=== PATIENT | male | born 1935 | race African-American/Black ===

== ENCOUNTER 2018-07-17 10:39 | Inpatient (IN) | payer MEDICARE, MEDICAID ==
[2018-07-17] VITALS (13 sets, daily range): BP systolic 97–134; BP diastolic 48–67
[~2018-07-17] VITALS: Ht 180.3 cm; Wt 77.6 kg
[~2018-07-17 10:39] MED LIST: ASPI-1158; ATOR-2; BECL8.7A5; DIGO125T82; ESOM40CA; FURO-151; HYDR-1348; METO25TA3; POTA25PA2; SPIRIVA
[2018-07-17 11:41] LABS: BASOPHILS % 0.9 % (0.0-2.0); EOSINOPHILS % 0.7 % (0.0-5.0); LYMPHOCYTES % 17.2 % (20.0-50.0); MEAN CORPUSCULAR HEMOGLOBIN 24.5 pg (28.0-32.0); MEAN CORPUSCULAR VOLUME 79.7 fL (80.0-94.0); MEAN PLATELET VOLUME 8.1 fl (7.4-10.4); MONOCYTES % 8.4 % (2.0-8.0); NEUTROPHILS % 72.8 % (40.0-76.0); PLATELET 154 x1000/uL (130-400); RED BLOOD CELL COUNT 2.42 mill/uL (4.7-6.1)
[2018-07-17 11:44] LABS: CHLORIDE 108 mEq/L (98-107); HEMATOCRIT. 19.3 % (42.0-52.0); HEMOGLOBIN. 5.9 g/dL (14.0-18.0)
[2018-07-17] MEDS ORDERED: TAMS0.4C31 MT (14:11)
[2018-07-17] MEDS ORDERED: FLUT15.88 BOTHNSTRLS (14:11)
[2018-07-17] MEDS ORDERED: ESOM40CA MT (14:11)
[2018-07-17] MEDS ORDERED: RIVA20TA MT (14:11)
[2018-07-17] MEDS ORDERED: ROSU20TA29 MT (14:11)
[2018-07-17] MEDS ORDERED: DUTA0.5C15 MT (14:11)
[2018-07-17] MEDS ORDERED: ARFO15VI2 NEB (14:11)
[2018-07-17] MEDS ORDERED: MAGNESIUM/ALUMINUM HYDROXIDE/SIMETHICONE 30ML UDC PO PRN (14:30)
[2018-07-17] MEDS ORDERED: GUAIFENESIN 200MG/10ML SUGAR FREE UDC PO PRN (14:30)
[2018-07-17] MEDS ORDERED: ONDANSETRON HCL 4MG/2ML INJ IV PRN (14:30)
[2018-07-17] MEDS ORDERED: CLONIDINE 0.1MG TABLET PO PRN (14:30)
[2018-07-17] MEDS ORDERED: IPRATROPIUM/ALBUTEROL 0.5-3(2.5)MG/3ML NEB INH PRN (14:30)
[2018-07-17] MEDS ORDERED: DOCUSATE SODIUM 100MG CAPSULE PO PRN (14:30)
[2018-07-17] MEDS ORDERED: HYDROCODONE/ACETAMINOPHEN 5/325MG TABLET PO PRN (14:30)
[2018-07-17] MEDS ORDERED: ACETAMINOPHEN 325MG TABLET PO PRN (14:30)
[2018-07-17] MEDS ORDERED: AMLODIPINE 10MG TABLET PO SCH (14:39)
[2018-07-17] MEDS ORDERED: CARVEDILOL 3.125 MG TABLET PO NR (15:00)
[2018-07-17 17:02] LABS: TOTAL IRON BINDING CAPACITY 347 ug/dL (250-450)
[2018-07-17 17:32] LABS: INR 1.4; PARTIAL THROMBOPLASTIN TIME 30.6 sec (23.4-31.0); PROTHROMBIN TIME 13.6 sec (9.1-11.1)
[2018-07-17] MEDS: PANTOPRAZOLE SODIUM 40 MG/VIAL IV SCH (17:37)
[2018-07-17 17:53] LABS: FOLIC ACID (FOLATE) SERUM >20 ng/mL ng/mL (>5.38)
[2018-07-17 18:05] LABS: VITAMIN B12 SERUM 292 pg/mL (211-911)
[2018-07-17 18:09] LABS: FERRITIN 7 ng/mL (22-322)
[2018-07-18] VITALS (8 sets, daily range): BP systolic 100–140; BP diastolic 52–80
[2018-07-18 00:12] LABS: HEMATOCRIT 25.3 % (42.0-52.0); HEMOGLOBIN 8.3 g/dL (14.0-18.0)
[2018-07-18 00:57] LABS: CREATINE KINASE MB FRACTION 3.2 ng/mL (0.5-3.6)
[2018-07-18] MEDS: CARVEDILOL 3.125 MG TABLET PO SCH ×3 (03:55→20:48)
[2018-07-18 05:26] LABS: BASOPHILS % 0.9 % (0.0-2.0); EOSINOPHILS % 1.6 % (0.0-5.0); HEMATOCRIT. 26.5 % (42.0-52.0); HEMOGLOBIN. 8.7 g/dL (14.0-18.0); LYMPHOCYTES % 22.9 % (20.0-50.0); MEAN CORPUSCULAR HEMOGLOBIN 26.2 pg (28.0-32.0); MONOCYTES % 7.1 % (2.0-8.0); NEUTROPHILS % 67.5 % (40.0-76.0); PLATELET 137 x1000/uL (130-400); RED BLOOD CELL COUNT 3.31 mill/uL (4.7-6.1); RED CELL DISTRIBUTION WIDTH 17.3 % (11.6-14.6)
[2018-07-18 05:31] LABS: INR 1.2; PARTIAL THROMBOPLASTIN TIME 27.4 sec (23.4-31.0); PROTHROMBIN TIME 11.7 sec (9.1-11.1)
[2018-07-18 05:33] LABS: CHLORIDE 110 mEq/L (98-107)
[2018-07-18 05:42] LABS: LDL CHOLESTEROL 35 mg/dL (5-100)
[2018-07-18 05:43] LABS: CREATINE KINASE 62 IU/L (39-308); HDL CHOLESTEROL 53 mg/dL (40-59)
[2018-07-18 05:50] LABS: CREATINE KINASE MB FRACTION 3.1 ng/mL (0.5-3.6)
[2018-07-18] MEDS ORDERED: FENTANYL CITRATE/PF 50MCG/ML 2ML VIAL IV PRN (14:08)
[2018-07-18] MEDS ORDERED: MIDAZOLAM HCL 5 MG/5 ML VIAL IV PRN (14:10)
[2018-07-18] MEDS ORDERED: SIMETHICONE 40 MG/0.6 ML 30ML ONE (14:11)
[2018-07-18] MEDS ORDERED: MIDAZOLAM HCL 5 MG/5 ML VIAL ONE (14:12)
[2018-07-18] MEDS ORDERED: FENTANYL CITRATE/PF 50MCG/ML 2ML VIAL ONE (14:12)
[2018-07-18] MEDS: PANTOPRAZOLE SODIUM 40 MG/VIAL IV SCH (15:00)
[2018-07-18] MEDS: IRON SUCROSE COMPLEX 100 MG/5 ML ML IV SCH (15:00)
[2018-07-19] VITALS: BP 121/64
[2018-07-19 07:45] LABS: BASOPHILS % 0.8 % (0.0-2.0); EOSINOPHILS % 1.6 % (0.0-5.0); HEMATOCRIT. 28.5 % (42.0-52.0); HEMOGLOBIN. 9.2 g/dL (14.0-18.0); MEAN CORPUSCULAR HEMOGLOBIN 26.2 pg (28.0-32.0); MEAN PLATELET VOLUME 8.9 fl (7.4-10.4); MONOCYTES % 7.2 % (2.0-8.0); NEUTROPHILS % 65.4 % (40.0-76.0); PLATELET 178 x1000/uL (130-400); RED BLOOD CELL COUNT 3.52 mill/uL (4.7-6.1); RED CELL DISTRIBUTION WIDTH 18.1 % (11.6-14.6)
[2018-07-19 08:20] VITALS: BP_SYST 113; BP_SYST 126; BP_DIAS 59; BP_DIAS 70
[2018-07-19] MEDS: CARVEDILOL 3.125 MG TABLET PO SCH ×3 (09:00→20:46)
[2018-07-19] MEDS: CYANOCOBALAMIN 1000MCG/ML VIAL IM SCH ×2 (09:00→11:19)
[2018-07-19] MEDS: PANTOPRAZOLE SODIUM 40 MG/VIAL IV SCH ×2 (09:00→11:19)
[2018-07-19] MEDS ORDERED: BARIUM SULFATE(VOLUMEN) 450 ML ORAL.SUSP ONE (09:18)
[2018-07-19 09:48] LABS: CHLORIDE 108 mEq/L (98-107)
[2018-07-19] MEDS ORDERED: IOHEXOL-350 100 ML BOTTLE ONE (11:06)
[2018-07-19 12:00] VITALS: BP 138/71
[2018-07-19] MEDS: IRON SUCROSE COMPLEX 100 MG/5 ML ML IV SCH (14:29)
[2018-07-19 16:00] VITALS: BP 133/58
[2018-07-19 20:00] VITALS: BP_SYST 123; BP_SYST 129; BP_DIAS 63; BP_DIAS 73
[2018-07-20] VITALS: BP 132/66
[2018-07-20 04:00] VITALS: BP 111/72
[2018-07-20 06:44] LABS: BASOPHILS % 0.8 % (0.0-2.0); EOSINOPHILS % 2.1 % (0.0-5.0); HEMATOCRIT. 25.4 % (42.0-52.0); HEMOGLOBIN. 8.2 g/dL (14.0-18.0); LYMPHOCYTES % 22.9 % (20.0-50.0); MEAN CORPUSCULAR HEMOGLOBIN 26.3 pg (28.0-32.0); MEAN PLATELET VOLUME 8.9 fl (7.4-10.4); MONOCYTES % 9.1 % (2.0-8.0); NEUTROPHILS % 65.1 % (40.0-76.0); PLATELET 146 x1000/uL (130-400); RED BLOOD CELL COUNT 3.14 mill/uL (4.7-6.1); RED CELL DISTRIBUTION WIDTH 17.9 % (11.6-14.6)
[2018-07-20 06:55] LABS: CHLORIDE 108 mEq/L (98-107)
[2018-07-20 08:00] VITALS: BP 148/78
[2018-07-20] MEDS: CARVEDILOL 3.125 MG TABLET PO SCH (09:29)
[2018-07-20] MEDS: PANTOPRAZOLE SODIUM 40 MG/VIAL IV SCH (09:29)
[2018-07-20] MEDS: CYANOCOBALAMIN 1000MCG/ML VIAL IM SCH (09:36)
[2018-07-20 11:48] VITALS: BP 20/110
[2018-07-20 12:00] VITALS: BP 128/63
[2018-07-20] MEDS: IRON SUCROSE COMPLEX 100 MG/5 ML ML IV SCH (14:34)
== END 2018-07-20 15:05 | disposition home health service (06) | DRG 241 ==
LOC: ER 10:39 → 8WST 12:05 → EDBEDREQTM 12:07 → EDBEDREQ 12:07 → ENRESERV 12:11
PROVIDERS: ADMIT Hospitalist; ATTEND Hospitalist
PROC: 30233N1 Transfusion of Nonautologous Red Blood Cells into Peripheral Vein, Percutaneous Approach (ICD-10-PCS; 2018-07-17)
PROC: 0DB68ZX Excision of Stomach, Via Natural or Artificial Opening Endoscopic, Diagnostic (ICD-10-PCS; 2018-07-18)
PROC: 0DB78ZX Excision of Stomach, Pylorus, Via Natural or Artificial Opening Endoscopic, Diagnostic (ICD-10-PCS; principal; 2018-07-18 10:00)
DX: K29.71 Gastritis, unspecified, with bleeding (principal); I47.2 Ventricular tachycardia; D68.59 Other primary thrombophilia; I11.9 Hypertensive heart disease without heart failure; D62 Acute posthemorrhagic anemia; J44.9 Chronic obstructive pulmonary disease, unspecified; E78.5 Hyperlipidemia, unspecified; I25.10 Atherosclerotic heart disease of native coronary artery without angina pectoris; R74.8 Abnormal levels of other serum enzymes; D50.9 Iron deficiency anemia, unspecified; I49.1 Atrial premature depolarization; I49.3 Ventricular premature depolarization; K44.9 Diaphragmatic hernia without obstruction or gangrene; Z79.01 Long term (current) use of anticoagulants; I25.2 Old myocardial infarction; Z79.02 Long term (current) use of antithrombotics/antiplatelets; Z87.891 Personal history of nicotine dependence; Z95.5 Presence of coronary angioplasty implant and graft; Z79.82 Long term (current) use of aspirin; Z79.899 Other long term (current) drug therapy
CPT/HCPCS: 36415; 71045; 74177; 76700; 80048; 80061; 82550; 82553; 82607; 82728; 82746; 83540; 83550; 83735; 83880; 84100; 84484; 85014; 85018; 85044; 85379; 86850; 86900; 86920; 88305; 88312; 88313; 93005; 93306; 93970; 96365; 97116; 97162; 97166; 97530; 99291; C9113; J2250; J3010; J3420; J7040; P9016; Q9967

== ENCOUNTER 2019-12-11 13:49 | Inpatient (IN) | payer MEDICARE, MEDICAID ==
[~2019-12-11] VITALS: Ht 185.4 cm; Wt 80.7 kg
[~2019-12-11 13:49] MED LIST changes: +ARFO15VI2 NEB; -ATOR-2; -DIGO125T82; +DUTA0.5C16 MT; +ESOM40CA MT; +FLUT15.844 BOTHNSTRLS; -FURO-151; -HYDR-1348; -POTA25PA2; +RIVA20TA MT; +ROSU20TA29 MT; +TAMS0.4C31 MT
[2019-12-11] MEDS ORDERED: SODIUM CHLORIDE 0.9% 1,000 ML IV ONE (14:50)
[2019-12-11 15:17] LABS: BASOPHILS % 0.6 % (0.0-2.0); HEMATOCRIT. 43.7 % (42.0-52.0); HEMOGLOBIN. 14.5 g/dL (14.0-18.0); LYMPHOCYTES % 35.1 % (20.0-50.0); MEAN CORPUSCULAR HEMOGLOBIN 30.6 pg (28.0-32.0); MEAN CORPUSCULAR VOLUME 92.3 fL (80.0-94.0); MEAN PLATELET VOLUME 7.9 fl (7.4-10.4); MONOCYTES % 9.3 % (2.0-8.0); PLATELET 147 x1000/uL (130-400); RED BLOOD CELL COUNT 4.74 mill/uL (4.7-6.1)
[2019-12-11 15:18] LABS: CHLORIDE 111 mEq/L (98-107)
[2019-12-11 15:20] LABS: PARTIAL THROMBOPLASTIN TIME 28.7 sec (23.4-31.0); PROTHROMBIN TIME 10.4 sec (9.6-11.0)
[2019-12-11] MEDS ORDERED: PANTOPRAZOLE SODIUM 40 MG/VIAL IV ONE (16:45)
[2019-12-11] MEDS ORDERED: ONDANSETRON HCL 4MG/2ML INJ IV PRN (19:30)
[2019-12-11] MEDS ORDERED: ACETAMINOPHEN 325MG TABLET PO PRN (19:30)
[2019-12-11 23:55] VITALS: BP 146/75
[2019-12-12] VITALS: BP 146/75
[2019-12-12] MEDS ORDERED: FERR325T6 PO (00:05)
[2019-12-12] MEDS ORDERED: TIOT18CA3 INH (00:05)
[2019-12-12] MEDS ORDERED: BECL10.62 INH (00:05)
[2019-12-12] MEDS ORDERED: OMEP40CA12 PO (00:05)
[2019-12-12] MEDS ORDERED: CLOP75TA33 PO (00:05)
[2019-12-12] MEDS ORDERED: ARFO15VI2 NEB (00:05)
[2019-12-12] MEDS ORDERED: FURO20TA4 PO (00:05)
[2019-12-12 04:00] VITALS: BP 147/69
[2019-12-12 06:32] LABS: CLARITY URINE CLEAR (CLEAR); COLOR URINE YELLOW (YELLOW); KETONES URINE TRACE (NEGATIVE); LEUKOCYTE ESTERASE URINE NEGATIVE (NEGATIVE); NITRITE URINE NEGATIVE (NEGATIVE); OCCULT BLOOD URINE NEGATIVE (NEGATIVE); PH URINE 5.5 (4.5-8.0); PROTEIN URINE TRACE (NEGATIVE); SPECIFIC GRAVITY URINE 1.021 (1.005-1.030); UROBILINOGEN URINE 0.2 E.U./dL (0.2-1.0)
[2019-12-12] MEDS ORDERED: PANTOPRAZOLE SODIUM 40 MG/VIAL IV SCH ×2 (09:00)
[2019-12-12 12:19] LABS: BASOPHILS % 0.8 % (0.0-2.0); EOSINOPHILS % 2.5 % (0.0-5.0); HEMATOCRIT. 44.6 % (42.0-52.0); HEMOGLOBIN. 14.5 g/dL (14.0-18.0); LYMPHOCYTES % 29.5 % (20.0-50.0); MEAN CORPUSCULAR HEMOGLOBIN 29.7 pg (28.0-32.0); MEAN CORPUSCULAR VOLUME 91.2 fL (80.0-94.0); MEAN PLATELET VOLUME 8.4 fl (7.4-10.4); MONOCYTES % 8.5 % (2.0-8.0); NEUTROPHILS % 58.7 % (40.0-76.0); PLATELET 147 x1000/uL (130-400); RED BLOOD CELL COUNT 4.89 mill/uL (4.7-6.1); RED CELL DISTRIBUTION WIDTH 14.8 % (11.6-14.6)
[2019-12-12 15:16] VITALS: BP 117/78
== END 2019-12-12 15:51 | disposition home or self-care (01) | DRG 253 ==
LOC: ER 14:03 → 6WST 17:35 → ENRESERV 22:32 → ER 23:32
PROVIDERS: ADMIT Internal Medicine; ATTEND Internal Medicine
DX: K92.2 Gastrointestinal hemorrhage, unspecified (principal); E87.8 Other disorders of electrolyte and fluid balance, not elsewhere classified; J44.9 Chronic obstructive pulmonary disease, unspecified; I25.10 Atherosclerotic heart disease of native coronary artery without angina pectoris; I10 Essential (primary) hypertension; E78.5 Hyperlipidemia, unspecified; N40.0 Benign prostatic hyperplasia without lower urinary tract symptoms; Z79.01 Long term (current) use of anticoagulants; Z86.718 Personal history of other venous thrombosis and embolism; Z79.899 Other long term (current) drug therapy
CPT/HCPCS: 36415; 71045; 80053; 81003; 82270; 84484; 85025; 86850; 86900; 93005; 99285; C9113; J7030

== ENCOUNTER 2020-09-28 09:43 | Emergency (ER) | payer MEDICARE, MEDICAID ==
[~2020-09-28] VITALS: Ht 165.1 cm; Wt 77.0 kg
[~2020-09-28 09:43] MED LIST changes: -ASPI-1158; +ASPI-1406; +BECL10.62 INH; -BECL8.7A5; +CLOP75TA33 PO; -DUTA0.5C16 MT; +DUTA0.5C37 MT; -ESOM40CA; -ESOM40CA MT; +FERR325T6 PO; +FURO20TA4 PO; +OMEP40CA12 PO; -RIVA20TA MT; -SPIRIVA; +TIOT18CA3 INH
[2020-09-28] MEDS ORDERED: ACETAMINOPHEN 325MG TABLET PO ONE (10:15)
[2020-09-28] MEDS ORDERED: LIDOCAINE 5% PATCH TOP SCH (10:15)
[2020-09-28 11:05] LABS: BASOPHILS % 0.4 % (0.0-2.0); EOSINOPHILS % 0.4 % (0.0-5.0); HEMATOCRIT. 45.3 % (42.0-52.0); HEMOGLOBIN. 14.9 g/dL (14.0-18.0); LYMPHOCYTES % 10.9 % (20.0-50.0); MEAN CORPUSCULAR HEMOGLOBIN 29.8 pg (28.0-32.0); MEAN CORPUSCULAR VOLUME 90.4 fL (80.0-94.0); MEAN PLATELET VOLUME 8.5 fl (7.4-10.4); MONOCYTES % 7.1 % (2.0-8.0); NEUTROPHILS % 81.2 % (40.0-76.0); PLATELET 167 x1000/uL (130-400); RED BLOOD CELL COUNT 5.01 mill/uL (4.7-6.1); RED CELL DISTRIBUTION WIDTH 14.1 % (11.6-14.6)
[2020-09-28 11:13] LABS: CHLORIDE 103 mEq/L (98-107)
[2020-09-28 14:34] VITALS: BP 168/55
[2020-09-28] MEDS ORDERED: LIDO700A15 TP (14:53)
== END 2020-09-28 15:19 | disposition home or self-care (01) ==
LOC: ER 09:43
DX: M25.512 Pain in left shoulder (principal); I25.2 Old myocardial infarction; I10 Essential (primary) hypertension; E78.00 Pure hypercholesterolemia, unspecified; J44.1 Chronic obstructive pulmonary disease with (acute) exacerbation; Z13.9 Encounter for screening, unspecified; Z79.899 Other long term (current) drug therapy; Z79.82 Long term (current) use of aspirin; Z86.73 Personal history of transient ischemic attack (TIA), and cerebral infarction without residual deficits; Z98.890 Other specified postprocedural states
CPT/HCPCS: 36415; 71045; 73030; 80053; 83880; 84484; 85025; 93005; 99285

== ENCOUNTER 2022-10-23 10:16 | Inpatient (IN) | payer MEDICARE, MEDICAID ==
[~2022-10-23] VITALS: Ht 180.3 cm; Wt 73.0 kg
[~2022-10-23 10:16] MED LIST changes: +LIDO700A15 TP; -OMEP40CA12 PO; +OMEP40CA20 PO
[2022-10-23] MEDS ORDERED: METHYLPREDNISOLONE SOD SUCC 125 MG/2 ML VIAL IV STA (10:41)
[2022-10-23] MEDS ORDERED: ALBUTEROL (0.083%) 2.5MG/3ML NEB HHN STA (10:41)
[2022-10-23] MEDS ORDERED: MAGNESIUM 2 G PREMIX 50 ML IV STA (10:41)
[2022-10-23] MEDS ORDERED: IPRATROPIUM BROMIDE (0.02%) 0.5MG/2.5ML NEB HHN STA (10:41)
[2022-10-23 11:25] LABS: BASOPHILS % 0.7 % (0.0-2.0); EOSINOPHILS % 2.2 % (0.0-5.0); HEMATOCRIT. 44.9 % (42.0-52.0); HEMOGLOBIN. 14.4 g/dL (14.0-18.0); LYMPHOCYTES % 20.2 % (20.0-50.0); MEAN CORPUSCULAR HEMOGLOBIN 30.4 pg (28.0-32.0); MEAN CORPUSCULAR VOLUME 95.1 fL (80.0-94.0); MEAN PLATELET VOLUME 7.6 fl (7.4-10.4); MONOCYTES % 5.3 % (2.0-8.0); NEUTROPHILS % 71.6 % (40.0-76.0); PLATELET 121 x1000/uL (130-400); RED BLOOD CELL COUNT 4.72 mill/uL (4.7-6.1); RED CELL DISTRIBUTION WIDTH 15.3 % (11.6-14.6)
[2022-10-23 11:30] LABS: CHLORIDE 110 mEq/L (98-107)
[2022-10-23] MEDS ORDERED: ACETAMINOPHEN 325MG TABLET PO PRN ×2 (14:30)
[2022-10-23] MEDS ORDERED: AZITHROMYCIN 500MG/250ML 250 ML IV SCH (14:30)
[2022-10-23] MEDS ORDERED: IPRATROPIUM/ALBUTEROL 0.5-3(2.5)MG/3ML NEB HHN PRN (14:30)
[2022-10-23] MEDS ORDERED: GUAIFENESIN 200MG/10ML SUGAR FREE UDC PO PRN (14:30)
[2022-10-23] MEDS ORDERED: DOCUSATE SODIUM 100MG CAPSULE PO PRN (14:30)
[2022-10-23] MEDS ORDERED: IPRATROPIUM/ALBUTEROL 0.5-3(2.5)MG/3ML NEB HHN SCH (14:30)
[2022-10-23] MEDS ORDERED: MAGNESIUM/ALUMINUM HYDROXIDE/SIMETHICONE 30ML UDC PO PRN (14:30)
[2022-10-23] MEDS ORDERED: DIPHENHYDRAMINE 50MG/ML VIAL IV PRN (14:30)
[2022-10-23] MEDS ORDERED: CLONIDINE 0.1MG TABLET PO PRN (14:30)
[2022-10-23 14:56] VITALS: BP 114/68
[2022-10-23] MEDS ORDERED: ALBUTEROL (0.083%) 2.5MG/3ML NEB HHN PRN (15:00)
[2022-10-23] MEDS ORDERED: IPRATROPIUM BROMIDE (0.02%) 0.5MG/2.5ML NEB HHN PRN (15:00)
[2022-10-23 15:04] LABS: BG BASE EXCESS 1.7 mmol/L (-2.0-2.0); BG CARBOXYHEMOGLOBIN 0.9 % (0.5-1.5); BG DEOXYHEMOGLOBIN 5.3 % (0.0-5.0); BG FRACTION INSPIRED OXYGEN 28; BG HCO3 ACT 25.8 mmol/L (22.0-26.0); BG METHEMOGLOBIN 0.1 % (0.0-1.5); BG OXYGEN SATURATION 94.6 % (92.0-98.5); BG OXYHEMOGLOBIN 93.7 % (94.0-97.0); BG PCO2 38.9 mmHg (35.0-45.0); BG PO2 73.6 mmHg (75.0-100.0); BG SAMPLE SITE RIGHT BRACHIAL; BG TOTAL HEMOGLOBIN 15.4 g/dL (12.0-18.0); BG VENT MODE NASAL CANNULA
[2022-10-23] MEDS ORDERED: ROSU20TA2 PO (15:28)
[2022-10-23] MEDS ORDERED: LEVO25TA7 PO (15:28)
[2022-10-23] MEDS ORDERED: FINA5TAB3 PO (15:28)
[2022-10-23] MEDS ORDERED: MIRT-118 PO (15:28)
[2022-10-23] MEDS ORDERED: DONE10TA11 PO (15:28)
[2022-10-23 16:00] VITALS: BP 104/68
[2022-10-23] MEDS: ENOXAPARIN 40MG/0.4ML SYR SUBCUT SCH (16:17)
[2022-10-23] MEDS: TAMSULOSIN HCL 0.4MG SR CAPSULE PO SCH (16:18)
[2022-10-23] MEDS ORDERED: AZITHROMYCIN 500MG in DEXTROSE 5% WATER 250ML IV SCH (17:00)
[2022-10-23] MEDS: METHYLPREDNISOLONE SOD SUCC 125 MG/2 ML VIAL IV SCH ×2 (17:35→23:33)
[2022-10-23 20:00] VITALS: BP_SYST 132; BP_SYST 82; BP_DIAS 46; BP_DIAS 60
[2022-10-23] MEDS: METOPROLOL TARTRATE 50MG TABLET PO SCH (21:00)
[2022-10-23] MEDS ORDERED: ATORVASTATIN CALCIUM 20MG TABLET PO SCH (21:00)
[2022-10-23] MEDS: MIRTAZAPINE 15MG TABLET PO SCH (21:20)
[2022-10-23] MEDS: MEMANTINE HCL 5MG TABLET PO SCH (21:20)
[2022-10-23 21:23] LABS: HEPATITIS B SURFACE ANTIGEN NEGATIVE
[2022-10-23 22:49] LABS: CLARITY URINE CLEAR (CLEAR); COLOR URINE YELLOW (YELLOW); KETONES URINE TRACE (NEGATIVE); LEUKOCYTE ESTERASE URINE NEGATIVE (NEGATIVE); NITRITE URINE NEGATIVE (NEGATIVE); OCCULT BLOOD URINE NEGATIVE (NEGATIVE); PROTEIN URINE 1+ (NEGATIVE); SPECIFIC GRAVITY URINE 1.021 (1.005-1.030); UROBILINOGEN URINE 0.2 E.U./dL (0.2-1.0)
[2022-10-23 23:00] LABS: *AMPHETAMINES SCREEN URINE NEGATIVE (NEGATIVE); *BARBITURATES SCREEN URINE NEGATIVE (NEGATIVE); *BENZODIAZEPINES SCREEN URINE NEGATIVE (NEGATIVE); *COCAINE SCREEN URINE NEGATIVE (NEGATIVE); CANNABINOID URINE SCREEN NEGATIVE (NEGATIVE); METHADONE URINE SCREEN NEGATIVE (NEGATIVE); OPIATES URINE SCREEN NEGATIVE (NEGATIVE); PHENCYCLIDINE URINE SCREEN NEGATIVE (NEGATIVE)
[2022-10-24] VITALS: BP 110/62
[2022-10-24 00:46] LABS: CREATINE KINASE MB FRACTION 2.3 ng/mL (0.5-3.6)
[2022-10-24] MEDS: IPRATROPIUM BROMIDE (0.02%) 0.5MG/2.5ML NEB HHN SCH ×4 (01:31→20:52)
[2022-10-24] MEDS: ALBUTEROL (0.083%) 2.5MG/3ML NEB HHN SCH ×4 (01:31→20:52)
[2022-10-24 04:00] VITALS: BP 118/52
[2022-10-24] MEDS: METHYLPREDNISOLONE SOD SUCC 125 MG/2 ML VIAL IV SCH ×3 (05:17→17:09)
[2022-10-24 07:00] LABS: BASOPHILS % 0.1 % (0.0-2.0); HEMATOCRIT. 40.3 % (42.0-52.0); HEMOGLOBIN. 13.3 g/dL (14.0-18.0); LYMPHOCYTES % 10.8 % (20.0-50.0); MEAN CORPUSCULAR VOLUME 93.6 fL (80.0-94.0); MEAN PLATELET VOLUME 8.7 fl (7.4-10.4); MONOCYTES % 1.2 % (2.0-8.0); NEUTROPHILS % 87.9 % (40.0-76.0); PLATELET 157 x1000/uL (130-400); RED CELL DISTRIBUTION WIDTH 15.3 % (11.6-14.6)
[2022-10-24 07:06] LABS: CHLORIDE 107 mEq/L (98-107)
[2022-10-24 07:21] LABS: CREATINE KINASE 79 IU/L (39-308); CREATINE KINASE MB FRACTION 2.5 ng/mL (0.5-3.6); HDL CHOLESTEROL 75 mg/dL (40-59); LDL CHOLESTEROL 50 mg/dL (5-100); T4 FREE 0.67 ng/dL (0.76-1.46)
[2022-10-24 08:00] VITALS: BP 191/88
[2022-10-24] MEDS: FUROSEMIDE 40MG/4ML VIAL IVP SCH (08:23)
[2022-10-24] MEDS: FAMOTIDINE 20MG TABLET PO SCH (08:24)
[2022-10-24] MEDS: FERROUS SULFATE 325MG TABLET PO SCH (08:24)
[2022-10-24] MEDS: FINASTERIDE 5MG TABLET PO SCH (08:24)
[2022-10-24] MEDS: ASPIRIN 81MG EC TABLET PO SCH (08:24)
[2022-10-24] MEDS: TAMSULOSIN HCL 0.4MG SR CAPSULE PO SCH (08:24)
[2022-10-24] MEDS: METOPROLOL TARTRATE 50MG TABLET PO SCH ×2 (08:24→20:35)
[2022-10-24] MEDS: LEVOTHYROXINE SODIUM 25MCG TABLET PO SCH (08:25)
[2022-10-24] MEDS: MEMANTINE HCL 5MG TABLET PO SCH ×2 (08:26→20:35)
[2022-10-24] MEDS ORDERED: AMIODARONE HCL 200 MG TABLET PO SCH (09:00)
[2022-10-24 12:00] VITALS: BP 126/58
[2022-10-24] MEDS: ENOXAPARIN 40MG/0.4ML SYR SUBCUT SCH (15:10)
[2022-10-24 16:00] VITALS: BP 103/56
[2022-10-24] MEDS ORDERED: AZITHROMYCIN 500 MG TABLET PO SCH (17:00)
[2022-10-24] MEDS: METHYLPREDNISOLONE SOD SUCC 40 MG/ML VIAL IV SCH (19:14)
[2022-10-24 20:00] VITALS: BP 122/67
[2022-10-24] MEDS: MIRTAZAPINE 15MG TABLET PO SCH (20:35)
[2022-10-25] VITALS: BP 128/65
[2022-10-25] MEDS: METHYLPREDNISOLONE SOD SUCC 40 MG/ML VIAL IV SCH ×2 (02:39→09:02)
[2022-10-25] MEDS: IPRATROPIUM BROMIDE (0.02%) 0.5MG/2.5ML NEB HHN SCH ×3 (03:06→14:26)
[2022-10-25] MEDS: ALBUTEROL (0.083%) 2.5MG/3ML NEB HHN SCH ×3 (03:07→14:26)
[2022-10-25 04:00] VITALS: BP 126/75
[2022-10-25 06:35] LABS: HEMATOCRIT. 42.4 % (42.0-52.0); HEMOGLOBIN. 14.3 g/dL (14.0-18.0); MEAN CORPUSCULAR HEMOGLOBIN 31.4 pg (28.0-32.0); MEAN CORPUSCULAR VOLUME 92.9 fL (80.0-94.0); MEAN PLATELET VOLUME 8.9 fl (7.4-10.4); PLATELET 151 x1000/uL (130-400); RED BLOOD CELL COUNT 4.56 mill/uL (4.7-6.1); RED CELL DISTRIBUTION WIDTH 15.2 % (11.6-14.6)
[2022-10-25 08:00] VITALS: BP 115/67
[2022-10-25] MEDS ORDERED: SODIUM POLYSTYRENE SULFONATE 15 G/60 ML BOT PO NR (08:00)
[2022-10-25] MEDS: FERROUS SULFATE 325MG TABLET PO SCH (08:53)
[2022-10-25] MEDS: TAMSULOSIN HCL 0.4MG SR CAPSULE PO SCH (08:53)
[2022-10-25] MEDS: METOPROLOL TARTRATE 50MG TABLET PO SCH (08:53)
[2022-10-25] MEDS: FAMOTIDINE 20MG TABLET PO SCH (08:53)
[2022-10-25] MEDS: FINASTERIDE 5MG TABLET PO SCH (08:53)
[2022-10-25] MEDS: ASPIRIN 81MG EC TABLET PO SCH (08:53)
[2022-10-25] MEDS: LEVOTHYROXINE SODIUM 25MCG TABLET PO SCH (08:53)
[2022-10-25] MEDS: MEMANTINE HCL 5MG TABLET PO SCH (08:53)
[2022-10-25] MEDS: FUROSEMIDE 40MG/4ML VIAL IVP SCH (08:54)
[2022-10-25] MEDS ORDERED: SODIUM CHLORIDE 0.45% 1,000 ML IV SCH (09:01)
[2022-10-25 09:15] LABS: CREATINE KINASE 271 IU/L (39-308)
[2022-10-25] MEDS ORDERED: AZIT500T8 PO (10:24)
[2022-10-25] MEDS ORDERED: METO-385 PO (10:24)
[2022-10-25] MEDS ORDERED: FURO-151 PO (10:24)
[2022-10-25] MEDS ORDERED: P20 PO (10:30)
[2022-10-25 10:34] LABS: PLATELET ESTIMATE NORMAL
[2022-10-25 12:00] VITALS: BP 139/69
[2022-10-25 13:14] VITALS: BP 139/69
[2022-10-25] MEDS ORDERED: ENOXAPARIN 30MG/0.3ML SYR SUBCUT SCH (15:00)
== END 2022-10-25 15:04 | disposition home health service (06) | DRG 134 ==
LOC: ER 10:16 → EDBEDREQ 10:54 → EDBEDREQTM 12:51 → 7EST 14:36
PROVIDERS: ADMIT Hospitalist; ATTEND Hospitalist
DX: I26.99 Other pulmonary embolism without acute cor pulmonale (principal); J96.01 Acute respiratory failure with hypoxia; N17.0 Acute kidney failure with tubular necrosis; E44.1 Mild protein-calorie malnutrition; D69.6 Thrombocytopenia, unspecified; I50.9 Heart failure, unspecified; I13.0 Hypertensive heart and chronic kidney disease with heart failure and stage 1 through stage 4 chronic kidney disease, or unspecified chronic kidney disease; E86.9 Volume depletion, unspecified; J44.1 Chronic obstructive pulmonary disease with (acute) exacerbation; F03.90 Unspecified dementia, unspecified severity, without behavioral disturbance, psychotic disturbance, mood disturbance, and anxiety; Z20.822 Contact with and (suspected) exposure to COVID-19; I25.10 Atherosclerotic heart disease of native coronary artery without angina pectoris; D72.819 Decreased white blood cell count, unspecified; N40.0 Benign prostatic hyperplasia without lower urinary tract symptoms; I45.2 Bifascicular block; R74.01 Elevation of levels of liver transaminase levels; N18.9 Chronic kidney disease, unspecified; E87.5 Hyperkalemia; E03.9 Hypothyroidism, unspecified; E78.5 Hyperlipidemia, unspecified; Z68.22 Body mass index [BMI] 22.0-22.9, adult; Z79.82 Long term (current) use of aspirin; I25.2 Old myocardial infarction; Z99.81 Dependence on supplemental oxygen; Z95.5 Presence of coronary angioplasty implant and graft; Z87.891 Personal history of nicotine dependence; Z86.73 Personal history of transient ischemic attack (TIA), and cerebral infarction without residual deficits; Z82.49 Family history of ischemic heart disease and other diseases of the circulatory system
CPT/HCPCS: 36415; 36600; 71045; 76770; 80048; 80053; 80061; 80305; 81003; 82248; 82375; 82550; 82553; 82805; 82962; 83036; 83605; 83735; 83880; 84145; 84153; 84439; 84481; 84484; 85025; 85379; 86705; 86709; 86803; 87340; 93005; 93306; 93970; 94640; 94644; 97162; 99285; C1893; J0456; J1650; J1940; J2920; J2930; J3475; J7060; G0103